=== PATIENT | female | born 1940 | race Asian ===

== ENCOUNTER 2018-05-23 15:00 | Emergency (ER) | payer MEDICARE, OTHER | END 2018-05-23 19:20 | disposition home or self-care (01) | LOC: FTE 15:00 | DX: S99.921A Unspecified injury of right foot, initial encounter (principal); E11.9 Type 2 diabetes mellitus without complications; I10 Essential (primary) hypertension; W01.0XXA Fall on same level from slipping, tripping and stumbling without subsequent striking against object, initial encounter; Y92.9 Unspecified place or not applicable; Z79.82 Long term (current) use of aspirin; Z79.84 Long term (current) use of oral hypoglycemic drugs; Z86.73 Personal history of transient ischemic attack (TIA), and cerebral infarction without residual deficits | CPT/HCPCS: 73630; 99283-25 ==

== ENCOUNTER 2018-07-14 14:35 | Inpatient (IN) | payer MEDICARE, OTHER ==
[2018-07-14 15:55] LABS: ADD MAN DIFF? NO
[2018-07-14 15:58] LABS: BASOPHILS % 0.4 % (0.0-2.0); EOSINOPHILS # 0.1 10^3/ul (0.0-0.5); EOSINOPHILS % 0.7 % (0.0-7.0); HEMATOCRIT 33.6 % (37.0-47.0); HEMOGLOBIN 10.3 g/dl (12.0-16.0); LYMPHOCYTES # 1.7 10^3/ul (0.8-2.9); LYMPHOCYTES % 20.6 % (15.0-51.0); MEAN CORPUSCULAR HGB CONC 30.7 g/dl (32.0-37.0); MEAN CORPUSCULAR VOLUME 78.3 fl (82.0-101.0); MEAN PLATELET VOLUME 11.1 fl (7.4-10.4); MONOCYTE # 0.5 10^3/ul (0.3-0.9); MONOCYTES % 6.4 % (0.0-11.0); NEUTROPHIL # 5.9 10^3/ul (1.6-7.5); NEUTROPHILS % 71.5 % (39.0-77.0); PLATELET COUNT 273 10^3/UL (140-415); RED BLOOD COUNT 4.29 10^6/ul (4.20-5.40); RED CELL DISTRIBUTION WIDTH 17.2 % (11.5-14.5)
[2018-07-14 15:58] LABS: WHITE BLOOD COUNT 8.3 10^3/ul (4.8-10.8)
[2018-07-14] MEDS: SOD CHLORIDE 0.9% 1,000 ML IV (16:09)
[2018-07-14] MEDS: ASPIRIN 325 MG TAB PO (16:11)
[2018-07-14 16:13] LABS: HEMOGLOBIN A1C 8.3 % (0-5.9)
[2018-07-14 16:16] LABS: ANION GAP 10 (5-13); BLOOD UREA NITROGEN 12 mg/dl (7-20); CALCIUM 11.2 mg/dl (8.4-10.2); CARBON DIOXIDE 29 mmol/L (21-31); CHLORIDE 101 mmol/L (97-110); CHOL/HDL RATIO 2.3 RATIO; CHOLESTEROL 130 mg/dl (100-200); GLUCOSE 188 mg/dl (70-220); HDL CHOLESTEROL 56 mg/dl (33-92); LDL CHOLESTEROL,CALCULATED 49 mg/dl; POTASSIUM 3.5 mmol/L (3.5-5.1); SODIUM 140 mmol/L (135-144); TRIGLYCERIDES 123 mg/dl (0-149)
[2018-07-14 16:18] LABS: INR 1.01; PROTIME 13.4 Sec (11.9-14.9)
[2018-07-14 16:19] LABS: PARTIAL THROMBOPLASTIN TIME 28.5 Sec (23.0-35.0)
[2018-07-14 16:27] LABS: TROPONIN-I < 0.012 ng/ml (0.000-0.120)
[2018-07-14] MEDS ORDERED: SOD CHLORIDE 0.9% 1,000 ML IV (17:22)
[2018-07-14] MEDS ORDERED: ONDANSETRON 4 MG INJ IV ×2 (17:30→18:00)
[2018-07-14] MEDS ORDERED: ACETAMINOPHEN 325 MG TAB PO ×2 (17:30→18:00)
[2018-07-14] MEDS ORDERED: MAGNESIUM HYDROXIDE 30ML CUP PO (18:00)
[2018-07-14] MEDS ORDERED: GLUCOSE GEL 15 GRAM TUBE BUCCAL (18:00)
[2018-07-14] MEDS ORDERED: NACL 0.9% 3 ML SYG IV (18:00)
[2018-07-14] MEDS ORDERED: DOCUSATE SODIUM 100 MG CAP PO (18:00)
[2018-07-14] MEDS ORDERED: GLUCAGON 1 MG INJ IM (18:00)
[2018-07-14] MEDS ORDERED: GLUCOSE GEL 15 GRAM TUBE PO ×2 (18:00)
[2018-07-14] MEDS: INSULIN ASPART [NOVOLOG] 3 ML PEN SC ×2 (18:00→21:00)
[2018-07-14] MEDS ORDERED: DEXTROSE 50% 50 ML SYRINGE IV ×2 (18:00)
[2018-07-14 19:23] LABS: IRON 30 ug/dl (35-150)
[2018-07-14 19:32] LABS: % IRON SATURATION 7 % SAT (22-52); TOTAL IRON BINDING CAPACITY 405 ug/dl (241-421)
[2018-07-14] MEDS: GABAPENTIN 300 MG CAP PO (22:16)
[2018-07-14] MEDS: ATORVASTATIN 20 MG TAB PO (22:16)
[2018-07-14] MEDS: DICLOFENAC SODIUM 1% GEL 100 GM TUBE TP (22:17)
[2018-07-15] MEDS: hydrALAzine 20 MG INJ IV (01:37)
[2018-07-15 05:01] LABS: ADD MAN DIFF? NO
[2018-07-15 05:07] LABS: BASOPHILS % 0.4 % (0.0-2.0); EOSINOPHILS # 0.1 10^3/ul (0.0-0.5); HEMATOCRIT 33.1 % (37.0-47.0); HEMOGLOBIN 10.3 g/dl (12.0-16.0); LYMPHOCYTES # 2.4 10^3/ul (0.8-2.9); MEAN CORPUSCULAR HEMOGLOBIN 23.8 pg (29.0-33.0); MEAN CORPUSCULAR HGB CONC 31.1 g/dl (32.0-37.0); MEAN CORPUSCULAR VOLUME 76.4 fl (82.0-101.0); MEAN PLATELET VOLUME 12.2 fl (7.4-10.4); MONOCYTE # 0.7 10^3/ul (0.3-0.9); NEUTROPHILS % 61.4 % (39.0-77.0); PLATELET COUNT 279 10^3/UL (140-415); RED BLOOD COUNT 4.33 10^6/ul (4.20-5.40); RED CELL DISTRIBUTION WIDTH 17.2 % (11.5-14.5)
[2018-07-15 05:07] LABS: WHITE BLOOD COUNT 8.2 10^3/ul (4.8-10.8)
[2018-07-15 05:36] LABS: ALANINE AMINOTRANSFERASE 14 IU/L (13-69); ALBUMIN/GLOBULIN RATIO 1.17; ALKALINE PHOSPHATASE 71 IU/L (42-121); ANION GAP 13 (5-13); ASPARTATE AMINO TRANSFERASE 15 IU/L (15-46); BILIRUBIN,INDIRECT 0.7 mg/dl (0-1.1); BILIRUBIN,TOTAL 0.7 mg/dl (0.2-1.3); BLOOD UREA NITROGEN 10 mg/dl (7-20); CALCIUM 10.6 mg/dl (8.4-10.2); CARBON DIOXIDE 26 mmol/L (21-31); CHLORIDE 105 mmol/L (97-110); CREATININE 0.67 mg/dl (0.44-1.00); GLUCOSE 194 mg/dl (70-220); MAGNESIUM 1.1 mg/dl (1.7-2.5); POTASSIUM 3.2 mmol/L (3.5-5.1); SODIUM 144 mmol/L (135-144); TOTAL PROTEIN 7.4 g/dl (6.1-8.1)
[2018-07-15] MEDS: PANTOPRAZOLE (EC) 40 MG TAB PO (06:38)
[2018-07-15] MEDS: INSULIN ASPART [NOVOLOG] 3 ML PEN SC ×3 (07:48→17:20)
[2018-07-15] MEDS: POLYETHYLENE GLYCOL 17 GM PACKET PO (08:26)
[2018-07-15] MEDS: FLUTICASONE 0.05% 16 GM NAS SPRAY NASAL (08:27)
[2018-07-15] MEDS: ASPIRIN 81 MG TAB PO (08:27)
[2018-07-15] MEDS: GABAPENTIN 300 MG CAP PO (08:27)
[2018-07-15] MEDS: CHOLECALCIFEROL 1,000 UNIT TAB PO (08:27)
[2018-07-15] MEDS: FISH OIL 1,000 MG CAP PO (08:27)
[2018-07-15] MEDS: CYANOCOBALAMIN 500 MCG TAB PO (08:27)
[2018-07-15] MEDS: DICLOFENAC SODIUM 1% GEL 100 GM TUBE TP ×2 (08:28→12:13)
[2018-07-15] MEDS: POTASSIUM CHLORIDE (SR) 20 MEQ TAB PO (09:11)
[2018-07-15] MEDS: MAGNESIUM SULFATE 3 GM in DEXTROSE 5% 100 ML IVPB (11:33)
[2018-07-15] MEDS ORDERED: ATORVASTATIN 40 MG TAB PO (21:00)
== END 2018-07-15 18:07 | disposition home health service (06) | DRG 66 ==
LOC: E/R 14:35 → 6WM 17:22
DX: I63.9 Cerebral infarction, unspecified (principal); E11.9 Type 2 diabetes mellitus without complications; I10 Essential (primary) hypertension; D50.9 Iron deficiency anemia, unspecified
CPT/HCPCS: 36415; 70450; 70545; 70548; 70552; 71045; 80048; 80053; 80061; 82962; 83036; 83540; 83735; 84443; 84484; 85025; 85610; 85730; 93005; 93306; 97162; 97167; 99285-25; G0378

== ENCOUNTER 2018-09-08 16:28 | Emergency (ER) | payer MEDICARE, OTHER ==
[2018-09-08 17:19] LABS: ADD MAN DIFF? NO
[2018-09-08 17:22] LABS: BASOPHILS % 0.1 % (0.0-2.0); EOSINOPHILS % 0.4 % (0.0-7.0); HEMATOCRIT 36.8 % (37.0-47.0); HEMOGLOBIN 11.9 g/dl (12.0-16.0); LYMPHOCYTES # 1.8 10^3/ul (0.8-2.9); MEAN CORPUSCULAR HGB CONC 32.3 g/dl (32.0-37.0); MEAN CORPUSCULAR VOLUME 80.5 fl (82.0-101.0); MEAN PLATELET VOLUME 12.2 fl (7.4-10.4); MONOCYTE # 0.7 10^3/ul (0.3-0.9); MONOCYTES % 8.1 % (0.0-11.0); NEUTROPHIL # 5.9 10^3/ul (1.6-7.5); NEUTROPHILS % 70.2 % (39.0-77.0); PLATELET COUNT 255 10^3/UL (140-415); RED BLOOD COUNT 4.57 10^6/ul (4.20-5.40); RED CELL DISTRIBUTION WIDTH 16.7 % (11.5-14.5)
[2018-09-08 17:22] LABS: WHITE BLOOD COUNT 8.4 10^3/ul (4.8-10.8)
[2018-09-08 17:32] LABS: INR 0.89; PROTIME 12.2 Sec (11.9-14.9)
[2018-09-08] MEDS: SOD CHLORIDE 0.9% 1,000 ML IV ×2 (17:32→18:27)
[2018-09-08] MEDS: LIDOCAINE/MYLANTA 40 ML BTL PO (17:32)
[2018-09-08] MEDS: BELLADONNA/PHENOBARBITAL TAB PO (17:32)
[2018-09-08] MEDS: FAMOTIDINE 20 MG INJ IV (17:33)
[2018-09-08] MEDS: ONDANSETRON 4 MG INJ IV (17:33)
[2018-09-08 17:34] LABS: ALANINE AMINOTRANSFERASE 13 IU/L (13-69); ALBUMIN 4.7 g/dl (3.3-4.9); ALKALINE PHOSPHATASE 73 IU/L (42-121); AMYLASE 109 U/L (11-123); ANION GAP 14 (5-13); ASPARTATE AMINO TRANSFERASE 25 IU/L (15-46); BILIRUBIN,INDIRECT 1.1 mg/dl (0-1.1); BILIRUBIN,TOTAL 1.1 mg/dl (0.2-1.3); BLOOD UREA NITROGEN 10 mg/dl (7-20); CALCIUM 10.5 mg/dl (8.4-10.2); CARBON DIOXIDE 24 mmol/L (21-31); CHLORIDE 93 mmol/L (97-110); CREATININE 0.71 mg/dl (0.44-1.00); GLUCOSE 146 mg/dl (70-220); LIPASE 316 U/L (23-300); POTASSIUM 3.9 mmol/L (3.5-5.1); SODIUM 131 mmol/L (135-144); TOTAL PROTEIN 8.3 g/dl (6.1-8.1)
[2018-09-08 17:45] LABS: TROPONIN-I < 0.012 ng/ml (0.000-0.120)
[2018-09-08 17:50] LABS: ADD UMIC NO; UR ASCORBIC ACID NEGATIVE (NEGATIVE); UR BILIRUBIN (Dip) NEGATIVE (NEGATIVE); UR BLOOD (Dip) NEGATIVE (NEGATIVE); UR CLARITY CLEAR (CLEAR); UR COLOR STRAW (YELLOW); UR GLUCOSE (Dip) NEGATIVE (NEGATIVE); UR KETONES (Dip) NEGATIVE (NEGATIVE); UR LEUKOCYTE ESTERASE (Dip) NEGATIVE Leu/ul (NEGATIVE); UR NITRITE (Dip) NEGATIVE (NEGATIVE); UR SPECIFIC GRAVITY (Dip) 1.003 (1.003-1.030); UR TOTAL PROTEIN (Dip) NEGATIVE (NEGATIVE); UR UROBILINOGEN (Dip) NEGATIVE (NEGATIVE)
[2018-09-08] MEDS: DIPHENOXYLATE/ATROPINE TAB PO (20:01)
== END 2018-09-08 20:08 | disposition home or self-care (01) ==
LOC: E/R 16:28
DX: E87.0 Hyperosmolality and hypernatremia (principal); R11.2 Nausea with vomiting, unspecified; R19.7 Diarrhea, unspecified; R10.9 Unspecified abdominal pain
CPT/HCPCS: 71045; 80053; 81003; 82150; 82962; 83690; 84484; 85025; 85610; 85730; 87086; 93005; 96374; 96375; 99285-25